=== PATIENT | female | born 1955 | race Caucasian/White ===

== ENCOUNTER 2017-10-18 20:02 | Emergency (ER) | payer OTHER ==
[~2017-10-18] VITALS: Ht 167.6 cm; Wt 90.7 kg
[2017-10-18 23:18] VITALS: BP 136/89
== END 2017-10-18 23:18 | disposition home or self-care (01) ==
LOC: ED 20:02
DX: S80.02XA Contusion of left knee, initial encounter (principal); S80.01XA Contusion of right knee, initial encounter; W01.0XXA Fall on same level from slipping, tripping and stumbling without subsequent striking against object, initial encounter; Y93.89 Activity, other specified; Y92.89 Other specified places as the place of occurrence of the external cause; Y99.8 Other external cause status; I10 Essential (primary) hypertension

== ENCOUNTER 2019-07-30 17:24 | Inpatient (IN) | payer OTHER ==
[~2019-07-30] VITALS: Ht 165.1 cm; Wt 106.7 kg
[2019-07-30 17:41] VITALS: Ht 165.1 cm; Wt 106.7 kg
[2019-07-30 19:17] LABS: BASOPHIL % 0.4 % (0-2); PLATELET COUNT 324 x10^3mcL (130-400); RED CELL DISTRIBUTION WIDTH 13.5 % (11.5-14.5)
[2019-07-30 19:35] LABS: CARBON DIOXIDE 28.9 mmol/L (21-32); CREATININE SERUM 1.5 mg/dL (0.6-1.0); POTASSIUM SERUM 3.8 mmol/L (3.5-5.1)
[2019-07-30 19:40] LABS: ALBUMIN 2.8 g/dL (3.4-5.0); BILIRUBIN TOTAL 0.4 mg/dL (0.20-1.00); TOTAL PROTEIN, SERUM 7.6 g/dL (6.4-8.2)
[2019-07-30 19:41] LABS: C REACTIVE PROTEIN 14.6 mg/dL (<=0.9)
[2019-07-31 00:04] VITALS: BP 103/71
[2019-07-31 00:43] LABS: UA SPECIFIC GRAVITY <=1.005 (1.005-1.035); microscopic required? YES; urine erythrocyte NEGATIVE (NEGATIVE)
[2019-07-31 02:58] LABS: FREE T4 1.3 ng/dL (0.76-1.46); T4(THYROXINE) 9.3 ug/dL (4.7-13.3)
[2019-07-31 03:41] LABS: CHOLESTEROL/HDL RATIO 2.7
[2019-07-31 04:14] LABS: AMPHETAMINE QUAL UR NONE DETECTED (See below)
[2019-07-31] MEDS ORDERED: GABAPENTIN300 M4 PO (04:24)
[2019-07-31] MEDS ORDERED: METOPROLOL TART25 M1 PO (04:24)
[2019-07-31] MEDS ORDERED: METFORMIN500 M1 PO (04:25)
[2019-07-31] MEDS ORDERED: BENAZEPRIL HYDR40 M1 PO (04:25)
[2019-07-31 04:50] VITALS: BP 124/62
[2019-07-31 06:33] LABS: BASOPHIL % 0.5 % (0-2); PLATELET COUNT 326 x10^3mcL (130-400); RED CELL DISTRIBUTION WIDTH 13.7 % (11.5-14.5)
[2019-07-31 06:58] LABS: CALCIUM 7.8 mg/dL (8.5-10.1); CARBON DIOXIDE 24.3 mmol/L (21-32); CREATININE SERUM 1.3 mg/dL (0.6-1.0); POTASSIUM SERUM 3.3 mmol/L (3.5-5.1)
[2019-07-31 07:39] VITALS: BP 131/77
[2019-07-31 11:48] VITALS: BP 137/82
[2019-07-31 16:38] VITALS: BP 134/82
[2019-07-31 20:00] VITALS: BP 134/75
[2019-08-01 05:47] VITALS: BP 130/79
[2019-08-01 06:14] LABS: BASOPHIL % 0.8 % (0-2); PLATELET COUNT 398 x10^3mcL (130-400); RED CELL DISTRIBUTION WIDTH 13.7 % (11.5-14.5)
[2019-08-01 06:42] LABS: CARBON DIOXIDE 24.7 mmol/L (21-32); CHLORIDE SERUM 107 mmol/L (98-107); CREATININE SERUM 0.9 mg/dL (0.6-1.0); GFR1 > 60 mL/min; GLUCOSE SERUM 90 mg/dL (74-106); MAGNESIUM 2.3 mg/dL (1.8-2.4); PHOSPHOROUS 3.6 mg/dL (2.5-4.9); SODIUM SERUM 142 mmol/L (136-145)
[2019-08-01 08:10] VITALS: BP 125/79
[2019-08-01 11:51] VITALS: BP 119/68
[2019-08-01] MEDS ORDERED: ELIQUIS5 MG PO (13:15)
[2019-08-01] MEDS ORDERED: KEFLEX500 M1 PO (13:17)
[2019-08-01 15:31] VITALS: BP 119/68
[2019-08-01 16:31] VITALS: BP 125/71
== END 2019-08-01 19:16 | disposition home or self-care (01) | DRG 299 ==
LOC: ED 17:24 → DU 22:31
PROVIDERS: Emergency Medicine; Family Medicine; ADMIT Internal Medicine
DX: I82.413 Acute embolism and thrombosis of femoral vein, bilateral (principal); N17.0 Acute kidney failure with tubular necrosis; N39.0 Urinary tract infection, site not specified; I82.433 Acute embolism and thrombosis of popliteal vein, bilateral; I10 Essential (primary) hypertension; R73.03 Prediabetes; G62.9 Polyneuropathy, unspecified; D64.9 Anemia, unspecified; I25.2 Old myocardial infarction; Z86.73 Personal history of transient ischemic attack (TIA), and cerebral infarction without residual deficits; Z86.718 Personal history of other venous thrombosis and embolism; Z79.84 Long term (current) use of oral hypoglycemic drugs; Z95.828 Presence of other vascular implants and grafts
CPT/HCPCS: 83880; 84439; 85378; G0378; J0696; J1650; J1885; J7030; Q0092; Q9967